=== PATIENT | male | born 1985 | race Hispanic/Latino ===

== ENCOUNTER 2022-03-05 17:02 | Emergency (ER) | payer SELFPAY ==
[~2022-03-05] VITALS: Ht 177.8 cm; Wt 105.0 kg
[2022-03-05] MEDS ORDERED: METFORMIN HCL1000 MG PO (17:31)
[2022-03-05 17:55] LABS: HEMATOCRIT 37.4 % (39.0-50.0); HEMOGLOBIN 12.4 g/dl (14.0-18.0); IMMATURE GRANULOCYTES 0.1 % (0.0-5.0); MEAN CELL VOLUME 83.1 fL CALC (80.0-100.0); MEAN CORPUSCULAR HGB 27.6 pG CALC (26.0-32.0); MEAN CORPUSCULAR HGB CONC 33.2 g/dL CAL (32.0-36.0); NEUT# 5.95 thou/uL (1.82-7.42); RED BLOOD COUNT 4.5 mill/uL (4.70-6.10); RED CELL DISTRI WIDTH 12.5 % (11.5-15.5)
[2022-03-05 18:08] LABS: PROTHROMBIN TIME 9.9 SECONDS (9.0-12.5)
[2022-03-05 18:11] LABS: ALBUMIN 4.4 g/dL (3.2-5.0); ALKALINE PHOSPHATASE 116 u/l (38-126); ANION GAP 16 (6-22 (CALC)); BILIRUBIN, TOTAL 0.3 mg/dL (0.0-1.4); BUN 15 mg/dL (9-20); BUN/CREATININE RATIO 24 (12-20 (CALC)); CARBON DIOXIDE 25 mmol/l (22-30); CHLORIDE 100 mmol/l (95-108); CREATININE 0.6 mg/dL (0.7-1.3); GFR FOR AFR.AMER. > 60 ML/MIN (>=60 (CALC)); GFR OTHER RACES > 60 ML/MIN (>=60 (CALC)); SGOT/AST 43 u/l (17-59); SODIUM 137 mmol/l (137-146); TOTAL PROTEIN 8.3 g/dL (6.3-8.2)
[2022-03-05 19:15] VITALS: BP 137/93
[2022-03-05 19:30] VITALS: BP 144/102
[2022-03-05 19:45] VITALS: BP 151/99
[2022-03-05 20:01] VITALS: BP 137/94
[2022-03-05] MEDS ORDERED: PREDNISONE20 MG PO (20:01)
[2022-03-05] MEDS ORDERED: AMARYL4 MG PO (20:01)
[2022-03-05 20:07] VITALS: BP 137/94
== END 2022-03-05 20:18 | disposition home or self-care (01) | DRG 74 ==
LOC: ED 17:02
PROVIDERS: Family Medicine
DX: G51.0 Bell's palsy (principal); E11.65 Type 2 diabetes mellitus with hyperglycemia; I10 Essential (primary) hypertension; Z79.84 Long term (current) use of oral hypoglycemic drugs
CPT/HCPCS: Q9967

== ENCOUNTER 2024-03-25 11:00 | Emergency (ER) | payer SELFPAY ==
[~2024-03-25] VITALS: Ht 177.8 cm; Wt 106.0 kg
[~2024-03-25 11:00] MED LIST: AMARYL4 MG PO; METFORMIN HCL1000 MG PO; PREDNISONE20 MG PO
[2024-03-25 11:08] VITALS: BP 138/96
[2024-03-25 11:20] VITALS: BP 145/92
[2024-03-25 11:40] VITALS: BP 146/98
[2024-03-25 12:00] VITALS: BP 148/100
[2024-03-25 12:20] VITALS: BP 139/96
[2024-03-25] MEDS ORDERED: PREDNISONE10 MG PO (12:29)
[2024-03-25] MEDS ORDERED: LUBRICANT EYE D0.5 % OU (12:29)
[2024-03-25] MEDS ORDERED: VALACYCLOVIR500 MG PO (12:29)
[2024-03-25 12:50] VITALS: BP 139/96
== END 2024-03-25 12:50 | disposition home or self-care (01) | DRG 74 ==
LOC: ED 11:00
DX: G51.0 Bell's palsy (principal); E11.9 Type 2 diabetes mellitus without complications; Z79.84 Long term (current) use of oral hypoglycemic drugs